=== PATIENT | male | born 1960 | race Caucasian/White ===

== ENCOUNTER 2018-09-07 08:03 | Emergency (ER) | payer OTHER ==
[2018-09-07 08:03] VITALS: BMI 26.1
[2018-09-07 08:14] VITALS: RESP 18
--- NOTE | 2018-09-07 09:21 | C.PDOC ---
History Of Present Illness 57 y/o male with PMH HTN (no meds) and hypercholesterolemia presents to ED stating "I came to check my heart". Patient states he had CT scan 1 week ago and today was suppose to come for bronchoscopy biopsy. Patient unaware of CT scan results and states he has been asymptomatic. According to CT paperwork 6cm x 5cm long mass noted to left upper lobe. Patient denies fever, chills, chest pain, sob, dizziness, headache, n/v, abdominal pain or any other complaints at this time. Time Seen by Provider: 09/07/18 08:19 Chief Complaint (Nursing): Medical Clearance History Per: Patient History/Exam Limitations: no limitations Onset/Duration Of Symptoms: Days Current Symptoms Are (Timing): Still Present Past Medical History Reviewed: Historical Data, Nursing Documentation, Vital Signs Vital Signs: Last Vital Signs Temp 98.6 F 09/07/18 08:06 Pulse 70 09/07/18 08:06 Resp 18 09/07/18 08:06 BP 176/77 H 09/07/18 08:06 Pulse Ox 96 09/07/18 08:06 - Medical History PMH: CVA (2003), HTN (" NO LONGER TAKING BLOOD PRESSURE MEDICATIONS."), Hypercholesterolemia, Hyperlipidemia Surgical History: No Surg Hx Family History: States: No Known Family Hx - Social History Hx Tobacco Use: No Hx Alcohol Use: No Hx Substance Use: No - Immunization History Hx Tetanus Toxoid Vaccination: No Hx Influenza Vaccination: Yes Hx Pneumococcal Vaccination: Yes Review Of Systems Except As Marked, All Systems Reviewed And Found Negative. Constitutional: Negative for: Fever, Chills Cardiovascular: Negative for: Chest Pain Respiratory: Negative for: Cough, Shortness of Breath Gastrointestinal: Negative for: Nausea, Vomiting Skin: Negative for: Rash Neurological: Negative for: Headache, Dizziness Physical Exam - Physical Exam Appears: Non-toxic, No Acute Distress Skin: Warm, Dry, No Rash Head: Atraumatic, Normacephalic Eye(s): bilateral: Normal Inspection, EOMI Nose: Normal Oral Mucosa: Moist Neck: Normal ROM, Supple Chest: Symmetrical Cardiovascular: Rhythm Regular Respiratory: Normal Breath Sounds, No Accessory Muscle Use, No Rales, No Rhonchi, No Wheezing Gastrointestinal/Abdominal: Soft, No Tenderness, No Guarding, No Rebound Extremity: Normal ROM, No Pedal Edema, Capillary Refill (<2 seconds) Neurological/Psych: Oriented x3, Normal Speech, Normal Cognition ED Course And Treatment O2 Sat by Pulse Oximetry: 96 (RA) Pulse Ox Interpretation: Normal Progress Note: D/w Dr. Steiner instructed patient be admitted under his service with Dr. Chawla on consult. Disposition - Disposition Disposition: HOSPITALIZED Disposition Time: 11:00 Condition: STABLE - Clinical Impression Clinical Impression: HTN (hypertension), Dyspnea - PA / DRUM HAND[employer]ER / Resident Statement MD/DO has reviewed & agrees with the documentation as recorded. - Scribe Statement The provider has reviewed the documentation as recorded by the Edwardoibnish Askew All medical record entries made by the Vannesa were at my direction and personally dictated by me. I have reviewed the chart and agree that the record accurately reflects my personal performance of the history, physical exam, medical decision making, and the department course for this patient. I have also personally directed, reviewed, and agree with the discharge instructions and disposition.
--- NOTE | 2018-09-07 14:16 | CT ---
Date of service: 09/07/2018 PROCEDURE: CT Chest without contrast HISTORY: History of lung cancer COMPARISON: None available. TECHNIQUE: Contiguous axial images were obtained through the chest without intravenous contrast enhancement. Sagittal and coronal reconstructions were performed. Radiation dose: Total exam DLP = 511.35 mGy-cm. This CT exam was performed using one or more of the following dose reduction techniques: Automated exposure control, adjustment of the mA and/or kV according to patient size, and/or use of iterative reconstruction technique. FINDINGS: LUNGS: There is mass lesion in the left lung upper lobe extending to the left hilum measures 5 centimeter in the largest AP diameter 5.6 centimeter in the largest transverse diameter and 6 centimeter in the longitudinal diameter surrounding and narrowing the left upper lobe main bronchus and extending to the left hilum. There are 2 nodular opacity at the peripheral upper portion of the left lung upper lobe may represent lung nodules or metastasis. Moderate to mildly severe emphysematous changes in the lungs predominant in the upper lobes noted. MEDIASTINUM: The thoracic aorta is mildly ectatic. Diffuse atherosclerotic calcification noted in the ascending aorta and aortic arch. The heart is mildly enlarged. Main pulmonary artery unremarkable. No vascular congestion. There are AP window and left hilar lymphadenopathy seen. Precarinal mildly enlarged lymph node is also noted. PLEURA: No pleural fluid. No pneumothorax. BONES: No fracture. No destructive lesion. UPPER ABDOMEN: There is 2 millimeter nonobstructing calculus at the midpole right kidney. OTHER FINDINGS: There is subcutaneous with defined lesion in the anterior chest wall slightly to the right of the midline measures 1.8 centimeter in the transverse diameter may represent metastasis versus benign skin lesion such as sebaceous cyst. Lnabtm-kl-zxhgyuldid enlarged heterogeneous thyroid gland contains multiple nodules noted. IMPRESSION: Mass at the left lung upper lobe extending to the left hilum highly suspicious for malignant neoplasm. Left sided mediastinal and left hilar lymphadenopathy likely represent metastasis. Two nodules noted at the left lung upper lobe may represent metastasis. Subcutaneous anterior chest wall well defined lesion measures 1.8 centimeter of uncertain etiology. The possibility of metastasis is not totally excluded.
[2018-09-07 14:51] VITALS: BP 168/74; PULSE 62; TEMP 98.4
--- NOTE | 2018-09-07 16:23 | CP.PCM.CON ---
History of Present Illness - History of Present Illness History of Present Illness: 57 M with hx of lung mass being admitted for dyspnea As pre op work up Branchoscopy or Georgie resection Stress and ECHO ordered NPO after MN except medications 57 y/o male with PMH HTN (no meds) and hypercholesterolemia presents to ED stating "I came to check my heart". Patient states he had CT scan 1 week ago and today was suppose to come for bronchoscopy biopsy. Patient unaware of CT scan results and states he has been asymptomatic. According to CT paperwork 6cm x 5cm long mass noted to left upper lobe. Patient denies fever, chills, chest pain, sob, dizziness, headache, n/v, abdominal pain or any other complaints at this time. Time Seen by Provider: 09/07/18 08:19 Chief Complaint (Nursing): Medical Clearance History Per: Patient History/Exam Limitations: no limitations Onset/Duration Of Symptoms: Days Current Symptoms Are (Timing): Still Present Past Medical History Reviewed: Historical Data, Nursing Documentation, Vital Signs Vital Signs: Last Vital Signs Temp 98.6 F 09/07/18 08:06 Pulse 70 09/07/18 08:06 Resp 18 09/07/18 08:06 BP 176/77 H 09/07/18 08:06 Pulse Ox 96 09/07/18 08:06 - Medical History PMH: CVA (2004), HTN (" NO LONGER TAKING BLOOD PRESSURE MEDICATIONS."), Hypercholesterolemia, Hyperlipidemia Surgical History: No Surg Hx Family History: States: No Known Family Hx - Social History Hx Tobacco Use: No Hx Alcohol Use: No Hx Substance Use: No - Immunization History Hx Tetanus Toxoid Vaccination: No Hx Influenza Vaccination: Yes Hx Pneumococcal Vaccination: Yes Review Of Systems Except As Marked, All Systems Reviewed And Found Negative. Constitutional: Negative for: Fever, Chills Cardiovascular: Negative for: Chest Pain Respiratory: Negative for: Cough, Shortness of Breath Gastrointestinal: Negative for: Nausea, Vomiting Skin: Negative for: Rash Neurological: Negative for: Headache, Dizziness Physical Exam - Physical Exam Appears: Non-toxic, No Acute Distress Skin: Warm, Dry, No Rash Head: Atraumatic, Normacephalic Eye(s): bilateral: Normal Inspection, EOMI Nose: Normal Oral Mucosa: Moist Neck: Normal ROM, Supple Chest: Symmetrical Cardiovascular: Rhythm Regular Respiratory: Normal Breath Sounds, No Accessory Muscle Use, No Rales, No Rhonchi, No Wheezing Gastrointestinal/Abdominal: Soft, No Tenderness, No Guarding, No Rebound Extremity: Normal ROM, No Pedal Edema, Capillary Refill (<2 seconds) Neurological/Psych: Oriented x3, Normal Speech, Normal Cognition Past Patient History - Infectious Disease Hx of Infectious Diseases: None - Past Medical History & Family History Past Medical History?: Yes - Past Social History Smoking Status: Heavy Smoker > 10 Cigarettes Daily - CARDIAC Hx Hypercholesterolemia: Yes Hx Hypertension: Yes (" NO LONGER TAKING BLOOD PRESSURE MEDICATIONS.") - PULMONARY Hx Respiratory Disorders: Yes Other/Comment: HX: LUNG MASS - NEUROLOGICAL Hx Neurological Disorder: Yes HX Cerebrovascular Accident: Yes ((2003)- NO RESIDUAL WEAKNESS) Other/Comment: Pt reported he had a Stroke in 2003 - HEENT Hx HEENT Problems: No - RENAL Hx Chronic Kidney Disease: No - ENDOCRINE/METABOLIC Hx Endocrine Disorders: No - HEMATOLOGICAL/ONCOLOGICAL Hx Blood Disorders: No - INTEGUMENTARY Hx Dermatological Problems: No - MUSCULOSKELETAL/RHEUMATOLOGICAL Hx Musculoskeletal Disorders: No Hx Falls: No - GASTROINTESTINAL Hx Gastrointestinal Disorders: No - GENITOURINARY/GYNECOLOGICAL Hx Genitourinary Disorders: No - PSYCHIATRIC Hx Substance Use: No - SURGICAL HISTORY Hx Surgeries: No - ANESTHESIA Hx Anesthesia: No Meds Allergies/Adverse Reactions: Allergies Allergy/AdvReac Type Severity Reaction Status Date / Time No Known Allergies Allergy Verified 08/31/18 08:11 Results - Vital Signs Recent Vital Signs: Last Vital Signs Temp 98.4 F 09/07/18 14:30 Pulse 62 09/07/18 14:30 Resp 18 09/07/18 14:30 BP 168/74 H 09/07/18 14:30 Pulse Ox 100 09/07/18 14:30 Assessment & Plan - Assessment and Plan (Free Text) Assessment: 57 M with hx of lung mass being admitted for dyspnea As pre op work up Branchoscopy or Georgie resection Stress and ECHO ordered NPO after MN except medications
[2018-09-07 18:21] VITALS: O2SAT 96
--- NOTE | 2018-09-07 18:41 | CP.PCM.PN ---
Subjective - Date & Time of Evaluation Date of Evaluation: 09/07/18 Time of Evaluation: 12:08 - Subjective Subjective: CC: Left upper lung lobe mass HPI: Patient is A 57 year old male with past medical history of HTN, HLD and known history of left upper lung mass (malignancy needs to be R/O), who presents to the ED as per his PMD for findings of left upper lung lobe mass on CT scan. Patient states that he is currently asymptomatic. Patient denies any symptoms of fever, chill, nausea, shortness of breath, dizziness, chest pain, palpitation, headache, cough and hemoptyisis. PMHx: HTN, TIA(2003), recent diagnosis of left upper lung lobe PSHx: Denies FHx: Mother (89 years old): prediabetic Medications: Crestor 5mg PO HS, ASA 81mg PO QD; unsure of all other medications Allergies: NKDA Social Hx: Lives alone, works at [id number] in the town of [place], current smoker, 1/2 -1PPD since he was 11 years old. Denies any current or former use ETOH and illicit drugs. Objective - Vital Signs/Intake and Output Vital Signs (last 24 hours): Temp Pulse Resp BP Pulse Ox 98.4 F 62 18 168/74 H 96 09/07/18 14:30 09/07/18 14:30 09/07/18 14:30 09/07/18 14:30 09/07/18 18:25 - Constitutional Appears: Well, No Acute Distress - Head Exam Head Exam: ATRAUMATIC, NORMAL INSPECTION - Eye Exam Eye Exam: EOMI, Normal appearance - ENT Exam ENT Exam: Mucous Membranes Moist - Respiratory Exam Respiratory Exam: Clear to Ausculation Bilateral, NORMAL BREATHING PATTERN. absent: Prolonged Expiratory Phase, Rhonchi, Wheezes, Respiratory Distress - Cardiovascular Exam Cardiovascular Exam: REGULAR RHYTHM, +S1, +S2 - GI/Abdominal Exam GI & Abdominal Exam: Soft, Normal Bowel Sounds. absent: Distended, Firm, Guarding, Rigid, Tenderness - Extremities Exam Extremities Exam: Normal Inspection. absent: Calf Tenderness, Joint Swelling, Pedal Edema - Neurological Exam Neurological Exam: Alert, Awake, Oriented x3 - Psychiatric Exam Psychiatric exam: Normal Affect - Skin Skin Exam: Normal Color Assessment and Plan (1) Mass of upper lobe of left lung Assessment & Plan: Patient is A 57 year old male with past medical history of HTN, HLD and known history of left upper lung mass (malignancy needs to be R/O): Chest CT W/O contrast: Mass at the left lung upper lobe extending to the left hilum highly suspicious for malignant neoplasm. Left sided mediastinal and left hilar lymphadenopathy likely represent metastasis. Two nodules noted at the left lung upper lobe may represent metastasis. Subcutaneous anterior chest wall well defined lesion measures 1.8 centimeter of uncertain etiology. The possibility of metastasis is not totally excluded. - Plans for bronchoscopy Cardiolgist, Dr. Chawla * Cardiac clearance Disposition: Patient signed AMA Case discussed with Dr. Steiner Status: Acute
--- NOTE | 2018-09-08 07:25 | HP ---
HISTORY OF PRESENT ILLNESS: A 57-year-old male with history of hypertension, smoker, COPD, admitted to the hospital with chief complaint of elevated blood pressure, shortness of breath. The patient has a lung mass . The patient presented to the ER, advised admission. The patient did smoke 2 packs a day. The patient has hypertension, but is noncompliant with medication. PHYSICAL EXAMINATION: GENERAL: The patient is alert and oriented. VITAL SIGNS: Temperature 98, pulse 90. HEENT: Within normal limits. NECK: Supple. CHEST: Symmetrical. HEART: Regular. ABDOMEN: Soft. EXTREMITIES: No edema. The patient suffers from uncontrolled hypertension, lung mass, chronic obstructive pulmonary disease. The patient was placed on bedrest, supportive care, blood pressure medications. We will follow. Jesus Steiner MD
--- NOTE | 2018-09-08 23:55 | CARD ---
APPROVED REPORT Date of service: 09/07/2018 EKG Measurement Heart [id number] <Conclusion> Normal sinus rhythm Moderate voltage criteria for LVH, may be normal variant T wave abnormality, consider inferior ischemia Abnormal ECG
== END 2018-09-07 18:29 | disposition left against medical advice (07) ==
LOC: C.ER 08:03 → C.9E 09:45 → UNDOADMIN 09:45 → UNDODISIN 18:29
DX: I10 Essential (primary) hypertension (principal); R06.00 Dyspnea, unspecified